=== PATIENT | female | born 1965 | race Caucasian/White ===

== ENCOUNTER 2016-04-22 12:15 | Emergency (ER) | payer MEDICARE ==
[2016-04-22 12:38] VITALS: BMI 53.2
[2016-04-22 13:00] LABS: AUTOMATED BASOPHIL 0.7 % (0-2); AUTOMATED EOSINOPHIL 0.8 % (0-5); AUTOMATED LYMPH 21.9 % (17-44); AUTOMATED MONOCYTE 6.5 % (3-10); AUTOMATED NEUTROPHIL 70.1 % (45-76); MPV 9.6 fL (7.4-10.4)
[2016-04-22 13:05] LABS: BLOOD UREA NITROGEN 16 MG/DL (7-17); CALCULATED OSMOLALITY 273 MOs/Kg (270-290); CHLORIDE 101 mEq/L (98-107); GLUCOSE 144 MG/DL (70-99); SODIUM LEVEL 140 mEq/L (137-146); TOTAL PROTEIN 8.4 G/DL (6.3-8.2)
[2016-04-22 14:36] LABS: LEUKOCYTES/URINE NEG (NEGATIVE); NITRITE/URINE NEG (NEGATIVE); RBC/URINE 0-2 (0-5); URINE OCCULT BLOOD 1+ (NEG/TRACE); WBC/URINE 0-2 (0-5)
[2016-04-22] MEDS ORDERED: MORPHINE 4 MG/ML INJECTION IV ONE (15:20)
[2016-04-22] MEDS ORDERED: ONDANSETRON HCL 4 MG/2 ML VIAL IV ONE (15:20)
[2016-04-22] MEDS ORDERED: SODIUM CHLORIDE 0.9% 10 ML FLUSH FLUSH PRN (15:20)
[2016-04-22] MEDS ORDERED: NS 1,000 ML IV ONE (15:22)
--- NOTE | 2016-04-22 15:22 | EDPRACDOC ---
- General Information Chief Complaint: Abdominal Pain Stated Complaint: ABD PAIN HX HERNIA Time Seen by Provider: 04/22/16 15:08 Mode Of Arrival: Car Home Medications: Home Medications Lisinopril/Hydrochlorothiazide [Lisinopril-Hctz 20-12.5 mg Tab] 1 tab PO DAILY 01/20/14 Allopurinol [Zyloprim] 100 mg PO BID 04/22/16 Aspirin/Acetaminophen/Caffeine [Goody's Ex-Str Powder Pkt (325/500/65mg)] 1 jigar PO Q4-6H PRN 04/22/16 Colchicine 0.6 mg PO DAILY 04/22/16 Cyclobenzaprine HCl [Flexeril] 10 mg PO TID 04/22/16 Ergocalciferol (Vitamin D2) [Vitamin D] 50,000 units PO Sa@0900 04/22/16 Hydrocodone Bit/Acetaminophen [Lortab 5/325] 1 tab PO Q4-6H PRN #15 tab Hydroxyzine HCl 50 mg PO TID 04/22/16 Lovastatin 20 mg PO QHS 04/22/16 Trazodone HCl 150 mg PO HS 04/22/16 Allergies/Adverse Reactions: Allergies Allergy/AdvReac Type Severity Reaction Status Date / Time No Known Allergies Allergy Verified 04/22/16 14:19 - History of Present Illness Onset: 3 weeks ago HPI: Pt states her PCP told her yesterday she had hernia and need xray to see if it was "pinching its self off". Denies fever, vomiting, changes in bowel or bladder , rash, cough, congestion. Pain Location: Reports: LUQ Pain Context: Reports: Spontaneous Pain Severity: Moderate Pain Quality: Reports: Aching Pain Radiation: Reports: No Radiation : No Adult Abdominal History: Reports: Abdominal Surgery Modifying Factors: improves with: Nothing Female Associated Signs & Symptoms: Reports: Nausea Oral Intake: Decreased Urinary Output: Normal - Treatment Prior to ED Arrival Reported Medications/Treatment ROLL CUTTER Treated With Medication ROLL CUTTER YES Medications ROLL CUTTER (Medication/ Goody Powder- 0900 Dose/Time) ED Past Medical History - History Reviewed Yes Nurses notes reviewed and agree except as marked - Patient Medical History Cardiac History: Reports: Hypertension, Hypercholesterolemia GI/ History: Reports: Gastroesophageal Reflux Musculoskeletal History: Reports: Arthritis Psychological History: Reports: Depression, Anxiety Systemic History: Denies: Cancer Surgical History: Reports: Cholecystectomy - Family Medical History Reports: Hypertension (parents, grandparents, siblings), Cancer (uncle stomach) , Stroke (father), Cardiac Disorders (parents) - Social Medical History Smoking Status: Current status unknown ETOH: None Substance Abuse: None EDM Review of Systems - Review of Systems Constitutional: No Symptoms Reported. negative: Fever, Chills, Weakness, Fatigue, Loss of Appetite Ears: No Symptoms Reported. negative: Pain, Hearing Loss, Drainage, Ear Pulling Throat: No Symptoms Reported. negative: Pain, Swelling Nose: No Symptoms Reported. negative: Congestion, Bleeding, Discharge, Injection, Swelling, Deformity, Ecchymosis, Tender, Abrasion, Laceration Mouth: No Symptoms Reported. negative: Pain, Drooling Respiratory: No Symptoms Reported. negative: Cough, Brassy Cough, Barky Cough, Shortness of Breath, Wheezing, Hemoptysis Cardiovascular: No Symptoms Reported. negative: Chest Pain, Palpitations, Syncope, Edema, Orthopnea, PND, Skin Mottling, Cyanosis Gastrointestinal: Nausea, Pain Genitourinary: No Symptoms Reported. negative: Dysuria, Hematuria, Frequency, Discharge, Bleeding, Testicular Pain, Neurological: No Symptoms Reported. negative: Headache, Dizziness, Seizure, Numbness, Weakness, Speech Difficulty, Gait Difficulty Musculoskeletal: No Symptoms Reported. negative: Neck, Chestwall, Ribs, Back, Shoulder, Arm, Elbow, Forearm, Wrist, Hand, Pelvis, Hip, Femur, Knee, Leg, Ankle , Foot Integumentary: No Symptoms Reported. negative: Itching, Rash, Bruising, Wound Allergic/Immunologic: No Symptoms Reported. negative: Hives, Itching Hematologic: No Symptoms Reported. negative: Lymphadenopathy, Easy Bruising, Easy Bleeding Psychiatric: No Symptoms Reported. negative: Anxiety, Depression, Hallucinations, Insomnia, Suicidal - Physical Exam Constitutional: Alert, Other (morbid obesity) Oriented to: Time, Person, Place Last recorded Vital Signs: Last Vital Signs Temp 98.9 F 04/22/16 15:37 Pulse 106 04/22/16 15:59 Resp 20 04/22/16 15:59 BP 134/66 04/22/16 15:59 Pulse Ox 94 04/22/16 15:59 Oxygen Pulse Oxygen Saturation 94 O2 Device Room Air Oxygen Flow Rate Fraction of Inspired Oxygen ( FIO2) - HEENT Head: Normal ( normocephalic) Eye Exam: Normal (PERRL, EOMI, Sclera white) Neck: Normal (FROM, trachea at midline) - Respiratory/Cardiovascular Respiratory: Normal - CTA (BBS clear to auscultation without adventitious sounds ) Cardiovascular: Tachycardia - GI Auscultation: Normal (NABS) Palpation: Normal (Soft,No rebound or guarding, non distended) Tenderness: Moderate, LUQ - Musculoskeletal Back: Normal (Non-Tender) Extremities: Normal (Normal tone, Pulses 2+ No cyanosis or edema, FROM) - Integumentary Skin: Normal, Warm, Dry Lymphatics: Normal (no adenopathy) - Neurologic Memory Impaired: Normal Motor Function: Normal (Normal tone, Pulses 2+ No cyanosis or edema, FROM) Mood Description: Normal Perception: Normal - Differential Diagnosis Bowel Obstruction, Hernia, Pancreatitis, PUD - Results 04/22/16 12:50 04/22/16 12:50 WBC 13.5 xk/uL (3.8-10.8) H 04/22/16 12:50 RBC 4.96 xM/uL (4.20-5.40) 04/22/16 12:50 Hgb 15.5 g/dL (12.0-16.0) 04/22/16 12:50 Hct 47.8 % (36-47) H 04/22/16 12:50 MCV 96 fL (81-99) 04/22/16 12:50 MCH 31.2 pg (27-32) 04/22/16 12:50 MCHC 32.4 g/dl (33-36) L 04/22/16 12:50 RDW 15.1 % (11.5-14.5) H 04/22/16 12:50 Plt Count 203 xk/uL (130-400) 04/22/16 12:50 MPV 9.6 fL (7.4-10.4) 04/22/16 12:50 Neut % (Auto) 70.1 % (45-76) 04/22/16 12:50 Lymph % (Auto) 21.9 % (17-44) 04/22/16 12:50 Cotton % (Auto) 6.5 % (3-10) 04/22/16 12:50 Eos % (Auto) 0.8 % (0-5) 04/22/16 12:50 Baso % (Auto) 0.7 % (0-2) 04/22/16 12:50 Absolute Neuts (auto) 9.45 xk/uL (1.7-8.2) H 04/22/16 12:50 Absolute Lymphs (auto) 2.84 xk/uL (0.65-4.75) 04/22/16 12:50 Sodium 140 mEq/L (137-146) 04/22/16 12:50 Potassium 3.8 mEq/L (3.5-5.1) 04/22/16 12:50 Chloride 101 mEq/L (98-107) 04/22/16 12:50 Carbon Dioxide 26 mMOL/L (22-33) 04/22/16 12:50 Anion Gap 17 mEq/L (8-16) H 04/22/16 12:50 BUN 16 MG/DL (7-17) 04/22/16 12:50 Creatinine 1.00 MG/DL (0.52-1.04) 04/22/16 12:50 Estimated GFR (MDRD) 59 mL/min (>=60) L 04/22/16 12:50 Glucose 144 MG/DL (70-99) H 04/22/16 12:50 Calculated Osmolality 273 MOs/Kg (270-290) 04/22/16 12:50 Calcium 10.0 MG/DL (8.4-10.2) 04/22/16 12:50 Total Bilirubin 0.6 MG/DL (0.2-1.3) 04/22/16 12:50 AST 33 IU/L (14-36) 04/22/16 12:50 ALT 39 IU/L (9-52) 04/22/16 12:50 Alkaline Phosphatase 96 IU/L (38-126) 04/22/16 12:50 Total Protein 8.4 G/DL (6.3-8.2) H 04/22/16 12:50 Albumin 4.7 G/DL (3.5-5.0) 04/22/16 12:50 Lipase 151 U/L (23-300) 04/22/16 12:50 Urine Color Yellow 04/22/16 14:04 Urine Clarity Clear 04/22/16 14:04 Urine pH 6.0 (5.0-8.0) 04/22/16 14:04 Ur Specific [place] 1.015 (1.003-1.035) 04/22/16 14:04 Urine Protein Neg (NEG/TRACE) 04/22/16 14:04 Urine Glucose (UA) Neg (NEGATIVE) 04/22/16 14:04 Urine Ketones Neg (NEGATIVE) 04/22/16 14:04 Urine Occult Blood 1+ (NEG/TRACE) H 04/22/16 14:04 Urine Nitrite Neg (NEGATIVE) 04/22/16 14:04 Urine Bilirubin Neg (NEGATIVE) 04/22/16 14:04 Urine Urobilinogen <2.0 MG/DL (0-1) 04/22/16 14:04 Ur Leukocyte Esterase Neg (NEGATIVE) 04/22/16 14:04 Urine RBC 0-2 (0-5) 04/22/16 14:04 Urine WBC 0-2 (0-5) 04/22/16 14:04 Ur Epithelial Cells Occ 04/22/16 14:04 Urine Bacteria Few (NEG/FEW) 04/22/16 14:04 Urine Mucus Occ (NEG/OCC) 04/22/16 14:04 Lab Results 04/22/16 04/22/16 04/22/16 14:04 12:50 12:50 WBC 13.5 H RBC 4.96 Hgb 15.5 Hct 47.8 H MCV 96 MCH 31.2 MCHC 32.4 L RDW 15.1 H Plt Count 203 MPV 9.6 Neut % (Auto) 70.1 Lymph % (Auto) 21.9 Cotton % (Auto) 6.5 Eos % (Auto) 0.8 Baso % (Auto) 0.7 Absolute Neuts (auto) 9.45 H Absolute Lymphs (auto) 2.84 Sodium 140 Potassium 3.8 Chloride 101 Carbon Dioxide 26 Anion Gap 17 H BUN 16 Creatinine 1.00 Estimated GFR (MDRD) 59 L Glucose 144 H Calculated Osmolality 273 Calcium 10.0 Total Bilirubin 0.6 AST 33 ALT 39 Alkaline Phosphatase 96 Total Protein 8.4 H Albumin 4.7 Lipase 151 Urine Color Yellow Urine Clarity Clear Urine pH 6.0 Ur Specific [place] 1.015 Urine Protein Neg Urine Glucose (UA) Neg Urine Ketones Neg Urine Occult Blood 1+ H Urine Nitrite Neg Urine Bilirubin Neg Urine Urobilinogen <2.0 Ur Leukocyte Esterase Neg Urine RBC 0-2 Urine WBC 0-2 Ur Epithelial Cells Occ Urine Bacteria Few Urine Mucus Occ - Diagnostic Imaging Abdomen Image interpreted by: Radiologist 04/22/16 17:28 IMPRESSION: 1. No acute abdominal or pelvic pathology. 2. Left paramedian supraumbilical fat containing hernia. Decision Time to Discharge: 17:28 - Departure Disposition: Home Condition: Good Final Diagnosis: Hernia Instructions: Acute Abdominal Pain (ED), Ventral Hernia (ED) Education/Counseling Given To: Patient Education/Counseling Given Regarding: Diagnosis, Treatment, Follow Up Referrals: Charlee Espinoza PA [Primary Care Provider] - One Week Prescriptions: Hydrocodone Bit/Acetaminophen [Lortab 5/325] 1 tab PO Q4-6H PRN #15 tab PRN Reason: Pain Additional Instructions: Return for worse or different symptoms.
[2016-04-22 15:57] VITALS: TEMP 98.9
[2016-04-22] MEDS ORDERED: Pharmacy Review for Metformin - IV Contrast Given SCH (16:00)
--- NOTE | 2016-04-22 17:23 | DIRPT ---
CLINICAL DATA: Left upper quadrant pain. Pain for 3 weeks. White blood cell count is elevated. EXAM: CT ABDOMEN AND PELVIS WITH CONTRAST TECHNIQUE: Multidetector CT imaging of the abdomen and pelvis was performed using the standard protocol following bolus administration of intravenous contrast. CONTRAST: 100 mL Isovue 370 COMPARISON: None. FINDINGS: Lower chest: Lung bases are clear. Normal heart size. Hepatobiliary: Low attenuation throughout the liver as can be seen with hepatic steatosis. Prior cholecystectomy. Pancreas: Normal. Spleen: Normal. Adrenals/Urinary Tract: Normal adrenal glands. Normal kidneys. No urolithiasis or obstructive uropathy. Normal bladder. Stomach/Bowel: No bowel wall thickening or dilatation. Normal appendix. No pneumatosis, pneumoperitoneum or portal venous gas. Diverticulosis without evidence of diverticulitis. No abdominal or pelvic free fluid. Vascular/Lymphatic: Normal caliber abdominal aorta. No lymphadenopathy. Reproductive: Normal uterus. No adnexal mass. Other: No fluid collection or hematoma. Left paramedian supraumbilical fat containing hernia. Musculoskeletal: No lytic or sclerotic osseous lesion. No acute osseous abnormality. Degenerative disc disease at L1-2 and L2-3. IMPRESSION: 1. No acute abdominal or pelvic pathology. 2. Left paramedian supraumbilical fat containing hernia. Electronically Signed By: Jasmyn Elias On: 04/22/2016 17:20
[2016-04-22 17:52] VITALS: BP 127/66; PULSE 107
== END 2016-04-22 17:45 | disposition home or self-care (01) ==
LOC: ED 12:15
DX: K46.9 Unspecified abdominal hernia without obstruction or gangrene (principal)
CPT/HCPCS: 36415; 74177; 80053; 81001; 83690; 85025; 93005; 96361; 96374; 96375; 99284; A9698; J2270; J2405